=== PATIENT | male | born 1975 | race Caucasian/White ===

== ENCOUNTER 2025-03-03 14:55 | Outpatient (REF) | payer BC, SELFPAY ==
--- NOTE | ~2025-03-03 | MR_ITS ---
EXAMINATION: MR CERVICAL SPINE WITHOUT CONTRAST CLINICAL INFORMATION: History of physical injury COMPARISON: None available. TECHNIQUE: MRI of the cervical spine was obtained using routine sequences without contrast. FINDINGS: Craniocervical junction is intact with normal position of the cerebellar tonsils. Bone marrow STIR signal in the inferior endplate of C5 and superior endplate of C6. Modic type II and type III endplate changes at C5-6. 1 mm retrolisthesis C5-6. Reverse curvature apex at C5-6. Cervical spinal cord signal is normal. C2-3: Right-sided disc osteophyte consummation. No cord compression. Right neuroforamina narrowing. C3-4: Broad-based disc osteophyte consummation. No cord compression. Left neuroforamina narrowing on a degenerative basis. C4-5: Central/left subarticular disc osteophyte compresses formation resulting in ventral deformity of the thecal sac. No cord compression. No neuroforamina stenosis. C5-6: 4.3 mm right subarticular and foraminal broad-based disc herniation resulting in ventral spinal cord deformity without cord signal abnormality in right neuroforamina stenosis. C6-7: Central disc osteophyte compresses formation resulting in ventral deformity of the thecal sac. No cord compression. No neuroforamina stenosis. C7-T1: No central spinal canal or neuroforamina stenosis. No prevertebral compartment hematoma, mass or fluid collection. Flow-void signal within the main vessels is normal. Left vertebral artery is dominant. MR/MR cervical spine wo con IMPRESSION: Right subarticular and foraminal broad-based disc herniation at C5-6 compressing the cord without cord edema and or myelopathy and causing right neuroforamina stenosis. Multilevel cervical spondylosis C3-4 to C6-7. Electronically signed by: Jose Manuel Sen MD 03/03/2025 03:44 PM EST
== END 2025-03-03 14:56 | disposition home or self-care (01) ==
LOC: HO.MRI 14:55
DX: M50.222 Other cervical disc displacement at C5-C6 level (principal); M47.812 Spondylosis without myelopathy or radiculopathy, cervical region; Z87.828 Personal history of other (healed) physical injury and trauma
CPT/HCPCS: 72141

== ENCOUNTER → 2025-03-03 14:56 | Outpatient (BNV) | payer BC, SELFPAY | PROVIDERS: Visit Provider Radiology Diagnostic Radiology | DX: M50.122 Cervical disc disorder at C5-C6 level with radiculopathy (principal); M99.61 Osseous and subluxation stenosis of intervertebral foramina of cervical region; M47.812 Spondylosis without myelopathy or radiculopathy, cervical region | CPT/HCPCS: 72141 ==